=== PATIENT | female | born 1980 | race Caucasian/White ===

== ENCOUNTER → 2022-10-13 09:02 | Outpatient (CLI) | payer OTHER, SELFPAY ==
[2022-10-13 19:31] LABS: Add Manual Diff / Slide Review NO; Basophils Absolute Auto 0 /uL (0-100); Basophils Percent Auto 0.4 % (0-2); Eosinophils Absolute Auto 100 /uL (0-450); Eosinophils Percent Auto 2.3 % (2-4); Hematocrit 38.4 % (36-46); Hemoglobin 13.1 g/dL (12.0-16.0); Lymphocytes Absolute Auto 1900 /uL (1100-4500); Lymphocytes Percent Auto 33.2 % (25-40); Mean Corpuscular HGB Conc 34.1 % (30-36); Mean Corpuscular Hemoglobin 30.8 PG (26-34); Mean Corpuscular Volume 90.2 fL (80-100); Monocytes Absolute Auto 300 /uL (0-900); Neutrophils Absolute Auto 3200 /uL (1500-7000); Neutrophils Percent Auto 58.1 % (50-75); Platelet Count 203 X10^3/uL (150-400); Red Blood Cell Count 4.26 X10^6/uL (4.0-5.2); Red Cell Distribution Width 12.8 % (11.6-14.8); White Blood Cell Count 5.6 X10^3/uL (4.5-11.0)
[2022-10-13 19:46] LABS: Alanine Aminotransferase 13 IU/L (<35); Albumin 4.1 g/dL (3.5-5.0); Albumin Globulin Ratio 1.3 (1.0-2.8); Alkaline Phosphatase 54 U/L (38-126); Aspartate Aminotransferase 20 IU/L (14-36); BUN Creatinine Ratio 11.7 (6-22); Bilirubin Total 0.7 mg/dL (0.2-1.3); Blood Urea Nitrogen 9 mg/dL (7-17); Calcium 8.8 mg/dL (8.4-10.2); Carbon Dioxide 28 mmol/L (22-32); Chloride 101 mmol/L (98-107); Cholesterol 159 mg/dL (140-199); Estimated Glomerular Filt Rate > 60 mL/min (>60); Globulin 3.1 g/dL (1.7-4.1); Glucose 99 mg/dL (70-100); HDL Cholesterol 54 mg/dL (40-60); HEMOLYSIS < 15 (0-50); LDL Cholesterol Calculated 86 mg/dL (<100); Potassium 4.3 mmol/L (3.4-5.1); Sodium 134 mmol/L (137-145); Total Protein 7.2 g/dL (6.3-8.2); Triglycerides 95 mg/dL (35-150)
== END ==
PROVIDERS: PCP Physician Assistant; Visit Provider Physician Assistant
DX: Z13.6 Encounter for screening for cardiovascular disorders (principal); Z79.899 Other long term (current) drug therapy; N92.6 Irregular menstruation, unspecified
CPT/HCPCS: 80053; 80061; 85025

== ENCOUNTER → 2023-05-09 13:30 | Outpatient (CLI) | payer OTHER, SELFPAY ==
[2023-05-09 19:52] LABS: Follicle Stimulating Hormone 28.6 mIU/mL; HCG Quantitative /Beta subunit < 2.4 mIU/mL; Prolactin 17.7 ng/mL (3.0-18.6)
[2023-05-09 20:10] LABS: TSH w/ Reflex to FT4 1.32 uIU/mL (0.47-4.68)
== END ==
PROVIDERS: PCP Physician Assistant; Visit Provider Physician Assistant
DX: N91.2 Amenorrhea, unspecified (principal)
CPT/HCPCS: 83001; 84146; 84443; 84702

== ENCOUNTER → 2023-08-11 08:46 | Outpatient (CLI) | payer OTHER, SELFPAY ==
--- NOTE | 2023-08-11 08:47 | DI.MG.S_ITS ---
BILATERAL DIGITAL SCREENING MAMMOGRAM 3D/2D WITH CAD: 08/11/2023 CLINICAL: Routine screening. Baseline exam. No prior exams were available for comparison. There are scattered areas of fibroglandular density in both breasts (category b / 25%-50% glandular tissue). Current study was also evaluated with a Computer Aided Detection (CAD) system. No significant masses, calcifications, or other findings are seen in either breast. IMPRESSION: NEGATIVE There is no mammographic evidence of malignancy. A 1 year screening mammogram is recommended. Based on the Tyrer Cuzick model (a risk assessment model) the patient's lifetime risk is 9.3% and her 10 year risk is 1.7%. According to the ACR, ACS, and NCCN guidelines, an annual breast MRI exam along with mammogram is recommended if the patient's lifetime risk is 20% or greater. This exam was interpreted at Station ID: [id number]. NOTE: For mammograms, a report in lay terms will be sent to the patient. Approximately 15% of breast malignancies will not be visualized mammographically. In the management of a palpable breast mass, a negative mammogram must not discourage biopsy of a clinically suspicious lesion. Electronically Signed By: Marian de la fuente/[email or web address]:08/11/2023 15:23:18 letter sent: Normal Exam ACR BI-RADS Category 1: Negative [id number]
== END ==
PROVIDERS: PCP Physician Assistant; Referring Provider Physician Assistant; Visit Provider Physician Assistant
DX: Z12.31 Encounter for screening mammogram for malignant neoplasm of breast (principal); R92.323 Mammographic fibroglandular density, bilateral breasts
CPT/HCPCS: 77063; 77067

== ENCOUNTER → 2024-06-08 08:45 | Outpatient (CLI) | payer OTHER, SELFPAY ==
[2024-06-11 13:41] LABS: Fecal Immunochemical Test Negative (Negative)
== END ==
PROVIDERS: PCP Physician Assistant; Visit Provider Physician Assistant
DX: Z12.11 Encounter for screening for malignant neoplasm of colon (principal)
CPT/HCPCS: 82274

== ENCOUNTER → 2024-12-26 09:10 | Outpatient (CLI) | payer OTHER, SELFPAY ==
--- NOTE | 2024-12-26 09:11 | DI.MRI.S_ITS ---
PROCEDURE: MR KNEE LT WO CON INDICATIONS: Left knee pain. Has had x-ray and PT. TECHNIQUE: Noncontrast sagittal PD fast spin echo and T2 fast spin echo with fat saturation, sagittal 3-D FLASH with fat saturation; coronal T1 spin echo and PD fast spin echo with fat saturation, and axial PD fast spin echo with fat saturation through the knee. COMPARISON: None. FINDINGS: Image quality: Excellent. Some images are limited by patient motion, pulsation or other artifacts. Menisci: Markedly abnormal appearance of the lateral meniscus with torn, macerated/degenerated posterior horn and midbody. Possible horizontal tear in the anterior horn into the anterior root ligament. Posterior meniscocapsular separation greater than medial. Mildly diminutive size of the anterior and posterior horns of the medial meniscus but without focal tear. Cruciate ligaments: Mild increased T2 weighted signal and thinning of the mid and distal anterior cruciate ligament mild injury/strain but with intact fibers without complete tear or retraction. Posterior cruciate ligament is normal. Medial structures: Mild increased medial bursal fluid. The medial collateral ligament appears intact. The semimembranosus tendon insertions appear intact. Visualized portions of the pes anserinus tendons appear normal. Lateral structures: Mild increased lateral bursal fluid adjacent to the popped gluteus tendon and lateral collateral ligament and iliotibial band. The lateral collateral ligament, long and short heads of the biceps femoris tendon appear intact. The popliteus tendon appears normal. Iliotibial band appears normal. Anterior structures: Mild tendinopathy distal quadriceps tendon without tear or retraction. Patellar ligament is normal. Mild nonspecific edema infrapatellar fat pad. Mild lateral subluxation of the patella and flattening of the femoral trochlea and lateral patellar facet which may predispose to patellar tracking instability. Bones and cartilage: Subchondral cysts and subchondral edema predominantly in the lateral tibial plateau. Moderate osteophytes and chondromalacia with heterogeneous appearance in the lateral tibial plateau and lateral femoral condyle. Mild thinning in the medial compartment cartilage and to a lesser degree in the lateral patellar facet. No MR evidence of fracture or dislocation. Joint space: Mild knee joint effusion. Small popliteal cyst 4 cm cc by 2 cm transverse by 1 cm AP maximal dimensions. IMPRESSION: Lateral meniscus tear as discussed above. Mild injury/strain anterior cruciate ligament. Degenerative changes most notably in the lateral compartment with cartilage thinning osteophytes. Mild knee joint effusion and small popliteal cyst. Other findings as above. Dictated by: Christopher Haynes M.D. on 12/27/2024 at 15:10 Approved by: Christopher Haynes M.D. on 12/27/2024 at 15:26
--- NOTE | 2024-12-26 09:11 | DI.MG.S_ITS ---
MM screening mammo BI: 12/26/2024. BI-RADS: 1 CLINICAL: 44-year old female for bilateral screening mammogram. Tyrer-Cuzick lifetime risk of 8.3%. No personal or first-degree family history of breast cancer. PRIOR EXAMS 08/11/2023. MAMMOGRAPHY TECHNIQUE: 2D and 3D (tomosynthesis) digital mammographic views obtained, with additional images as needed for full coverage. Current study was also evaluated with a Computer Aided Detection (CAD) system. DENSITY B. There are scattered areas of fibroglandular density. MAMMOGRAPHY FINDINGS Bilateral: No suspicious mass, asymmetry, microcalcification, or other abnormality seen. IMPRESSION: * No evidence of malignancy. RECOMMENDATIONS Bilateral * Annual screening mammography. OVERALL ASSESSMENT CATEGORY BI-RADS-1: Negative. The [employer] recommends annual screening mammography beginning at age 40 for women with average risk of breast cancer. ELECTRONICALLY SIGNED: Nereyda Nation M.D. on 12/26/2024 at 01:44:25 PM PT Interpreting Station ID: [id number]
== END ==
PROVIDERS: PCP Physician Assistant; Referring Provider Physician Assistant; Visit Provider Physician Assistant
DX: Z12.31 Encounter for screening mammogram for malignant neoplasm of breast (principal); S83.282A Other tear of lateral meniscus, current injury, left knee, initial encounter; S83.512A Sprain of anterior cruciate ligament of left knee, initial encounter; S83.8X2A Sprain of other specified parts of left knee, initial encounter; M25.462 Effusion, left knee; M71.22 Synovial cyst of popliteal space [Baker], left knee; M25.562 Pain in left knee; G89.29 Other chronic pain; X58.XXXA Exposure to other specified factors, initial encounter
CPT/HCPCS: 73721; 77063; 77067

== ENCOUNTER → 2025-04-03 09:15 | Outpatient (CLI) | payer OTHER, SELFPAY ==
--- NOTE | 2025-04-03 09:16 | DI.MRI.S_ITS ---
PROCEDURE: MR KNEE RT WO CON INDICATIONS: right knee pain TECHNIQUE: Noncontrast sagittal PD fast spin echo and T2 fast spin echo with fat saturation, sagittal 3-D FLASH with fat saturation; coronal T1 spin echo and PD fast spin echo with fat saturation, and axial PD fast spin echo with fat saturation through the knee. COMPARISON: [facility], MR, MR KNEE LT WO CON, 12/26/2024, 9:30. FINDINGS: Quality: Adequate Menisci: Medial meniscus: Intact Lateral meniscus: Complex tearing of the body and posterior horn predominantly horizontal. A millimeter parameniscal cyst at the anterior root Cruciate ligaments: Anterior cruciate ligament: Intact Posterior cruciate ligament: Intact Collateral ligaments: Medial collateral ligament: Intact Lateral collateral ligament complex: Intact Extensor mechanism: Quadriceps tendon: Intact Patellar tendon: Intact Retinaculum: Intact Fat pads: Unremarkable Cartilage: Non uniform full-thickness thinning along the posterior aspect of the lateral tibial condyle subchondral marrow edema like lesions. Deep fissuring and increased intrasubstance signal along the patella and medial femoral condyle Bones: No fracture. Fluid spaces: Joint: Physiologic fluid. 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 Complex tearing of the lateral meniscus. Popliteal cyst. Dictated by: Armando Uriarte M.D. on 04/05/2025 at 10:09 Approved by: Armando Uriarte M.D. on 04/05/2025 at 10:49
== END ==
PROVIDERS: PCP Physician Assistant; Referring Provider Orthopaedic Surgery; Visit Provider Orthopaedic Surgery
DX: S83.271A Complex tear of lateral meniscus, current injury, right knee, initial encounter (principal); M17.11 Unilateral primary osteoarthritis, right knee; M71.21 Synovial cyst of popliteal space [Baker], right knee; M25.561 Pain in right knee
CPT/HCPCS: 73721